=== PATIENT | male | born 1950 | race Caucasian/White ===

== ENCOUNTER 2018-10-03 09:33 | Outpatient (CLI) | payer MEDICARE ==
[2018-10-03 09:30] VITALS: BP 136/70
[~2018-10-03 09:33] MED LIST: PEPCID20 M1 PO
--- NOTE | 2018-10-05 13:18 | GI Progress Note ---
Assessment/Plan Problems: (1) Abdominal pain ICD Codes: R10.9 - Unspecified abdominal pain SNOMED: 34412364 (2) GERD (gastroesophageal reflux disease) ICD Codes: K21.9 - Gastro-esophageal reflux disease without esophagitis SNOMED: 051262921 Status: stable Status Narrative Seen with Dr. Fowler. Assessment/Plan Recommended to the patient had a repeat colonoscopy, will schedule once patient agrees. The patient could also have the upper endoscopy performed given his history of GERD and current abdominal pain Will order abdominal ultrasound if the pain persisted RTC x 1 month The patient was seen and examined at bedside and all new and available data was reviewed in the patients chart. I agree with the above findings, impression and plan. (Patient seen earlier today. Signature stamp does not reflect patient encounter time.). - Stefano Fowler MD Subjective Subjective Complains of mild abdominal pain GERD, takes Pepcid every night Last EGD and colonoscopy approximately 5 years ago in 2012 Objective Temperature 97.8 Blood pressure 136/70 Pulse of 66 100% room air General Appearance: WD/WN, no apparent distress, alert Cardiovascular: normal rate Respiratory/Chest: normal breath sounds, no respiratory distress Abdominal Exam: normal bowel sounds, non tender, soft Extremities: normal range of motion, non-tender Blanquita Khalil NP Oct 05, 2018 13:18
== END 2018-10-03 10:03 | disposition home or self-care (01) ==
LOC: PAN 09:33
DX: K21.9 Gastro-esophageal reflux disease without esophagitis (principal)
CPT/HCPCS: 99212

== ENCOUNTER 2019-01-23 09:05 | Outpatient (CLI) | payer MEDICARE ==
[2019-01-23 12:47] VITALS: BP 125/70
[2019-01-23] MEDS ORDERED: FLOMAX0.4 MG ORAL (12:47)
[2019-01-23] MEDS ORDERED: BYSTOLIC2.5 MG ORAL (12:47)
--- NOTE | 2019-01-23 19:30 | Consultation ---
DATE OF CONSULTATION: 01/23/2019 CONSULTING PHYSICIAN: Stefano Fowler M.D. CHIEF COMPLAINT: Abdominal pain. HISTORY OF PRESENT ILLNESS: This is a very pleasant 68-year-old male with multiple medical problems, which I will dictate in a second, complaint of right upper quadrant abdominal pain, waking him up in the middle of the night, usually around 2:30 in the morning associated with nausea and vomiting. No weight loss. No alarming signs or symptoms. Last endoscopy and colonoscopy in 2012, as he had a hiatal hernia, H. pylori-negative gastritis, and diverticulosis. PAST MEDICAL HISTORY: 1. History of hypercholesterolemia. 2. BPH. 3. Hypertension. 4. Hiatal hernia. 5. H. pylori-negative gastritis. 6. Diverticulosis. 7. GERD. PAST SURGICAL HISTORY: None. ALLERGIES: No known drug allergies. MEDICATIONS: Please see medication reconciliation list. SOCIAL HISTORY: The patient denies any tobacco, alcohol, or drug abuse. FAMILY HISTORY: Noncontributory. Father had a pancreatic cancer at old age at 90s. REVIEW OF SYSTEMS: A 10-point review of systems was performed and pertinent positives in HPI. PHYSICAL EXAMINATION: VITAL SIGNS: Temperature is 98.1, pulse is 71, respirations 20, and blood pressure is 124/70. HEENT: Normocephalic and atraumatic. Sclerae anicteric. NECK: Supple. No evidence of lymphadenopathy. CARDIOVASCULAR: Regular rate and rhythm. Plus S1 and S2. No obvious murmur. LUNGS: Clear to auscultation bilaterally. ABDOMEN: Positive bowel sounds. Soft and nontender. No rebound. No guarding. No peritoneal sign. EXTREMITIES: No cyanosis, no clubbing, no edema ASSESSMENT AND PLAN: This is a 68-year-old male with right upper quadrant pain, suspicious for gallstones. Also, the patient has a colonoscopy over 5 years ago and needed another colonoscopy screening. Plan to schedule for a screening colonoscopy and abdominal ultrasound on the same day. we are also going to check CBC, CMP, amylase, lipase. I want to thank, Dr. Stefano Bustos, for this kind referral. Stefano Fowler M.D. DR: CORONA JOB#: [id number] CC: Stefano Bustos M.D.
== END 2019-01-23 11:00 | disposition home or self-care (01) ==
LOC: PAN 09:05
DX: R10.11 Right upper quadrant pain (principal); R11.2 Nausea with vomiting, unspecified; K57.90 Diverticulosis of intestine, part unspecified, without perforation or abscess without bleeding; E78.00 Pure hypercholesterolemia, unspecified; I10 Essential (primary) hypertension; K21.9 Gastro-esophageal reflux disease without esophagitis
CPT/HCPCS: 99212

== ENCOUNTER 2019-02-02 11:50 | Outpatient (CLI) | payer MEDICARE ==
--- NOTE | 2019-01-31 14:51 | Diagnostic Imaging Report ---
Indication: Trauma pain Technique: A plantar grayscale and color Doppler imaging of the abdomen Comparison: None Findings: Technically difficult exam given patient body habitus and overlying bowel gas. Within these limitations: Increased obscured by overlying bowel gas. Imaged portions of the pancreas appear grossly unremarkable. Hepatic contour appears smooth. Right lobe liver measures 15.6 cm in length. Hepatic echogenicity is homogeneous. No focal hepatic mass lesion is appreciated sonographically. Main portal vein appears patent. No intrahepatic biliary ductal dilatation is identified. Common bile duct measures 4.3 cm diameter. Sludge with possible small stones noted in the gallbladder. No gallbladder wall thickening or pericholecystic fluid. Sonographic Guzman sign reported as negative. The right kidney measures 9.6 centers in length. The left kidney measures 11.6 cm in length. Both kidneys demonstrate normal echogenicity. No hydronephrosis or sonographically appreciable renal stone is identified. A simple appearing cyst is noted in the right kidney measuring up to 2.7 cm. Apparent hypoechoic area in the left kidney measuring 1.7 cm in diameter. This may represent an area of lobulation. Subtle mass however is not excluded. Spleen is normal in size. Imaged portions of the abdominal aorta normal in size. No ascites is demonstrated. IMPRESSION: Limited exam due to patient body habitus and overlying bowel gas. Within these limitations: Gallbladder sludge with some possible small stones. No sonographic evidence to suggest acute cholecystitis. Sonographic Guzman sign reported as negative. 1.7 cm apparent hypoechoic lesion in the left kidney which may represent area of prominent lobulation, artifact or subtle mass. Further evaluation with contrast-enhanced CT or MRI is recommended.
[~2019-02-02 11:50] MED LIST changes: +BYSTOLIC2.5 MG ORAL; +FLOMAX0.4 MG ORAL; +LIPITOR20 MG ORAL
== END 2019-02-02 13:50 | disposition home or self-care (01) ==
LOC: ULS 11:50
DX: R10.9 Unspecified abdominal pain (principal)
CPT/HCPCS: 76700

== ENCOUNTER 2019-02-13 09:11 | Outpatient (CLI) | payer MEDICARE ==
--- NOTE | 2019-02-13 09:54 | General Progress Note ---
Assessment/Plan Problem List: (1) Chronic constipation ICD Codes: K59.09 - Other constipation SNOMED: 298385116 (2) Colon polyps ICD Codes: K63.5 - Polyp of colon SNOMED: 05429889 (3) GERD (gastroesophageal reflux disease) ICD Codes: K21.9 - Gastro-esophageal reflux disease without esophagitis SNOMED: 852038456 Assessment/Plan: given 1.5 cm polyp, recommend repeat colonoscopy in 3 [address] of abd to fu on kidney lesion patient was offered cholecystectomy but wants to try ursodiol first RTC 3 months Subjective ROS Limited/Unobtainable: Yes Allergies: Coded Allergies: No Known Allergies (Unverified , 01/31/19) Objective General Appearance: alert EENT: normal ENT inspection Neck: supple Cardiovascular: normal rate Respiratory/Chest: lungs clear Abdomen: normal bowel sounds, non tender, soft Extremities: non-tender Stefano Fowler MD February 13, 2019 09:54
== END 2019-02-13 14:41 | disposition home or self-care (01) ==
LOC: PAN 09:11
DX: K59.09 Other constipation (principal); K63.5 Polyp of colon; K21.9 Gastro-esophageal reflux disease without esophagitis

== ENCOUNTER 2019-02-15 09:30 | Outpatient (CLI) | payer MEDICARE, BC ==
[2019-02-15 10:16] LABS: ALANINE AMINOTRANSFERASE 38 U/L (12-78); ALBUMIN 3.9 G/DL (3.4-5.0); ALKALINE PHOSPHATASE 87 U/L (46-116); AMYLASE 43 U/L (25-115); ANION GAP 6 mmol/L (5-15); ASPARTATE AMINO TRANSFERASE 24 U/L (15-37); BILIRUBIN,TOTAL 1.7 MG/DL (0.2-1.0); BLOOD UREA NITROGEN 18 mg/dL (7-18); CALCIUM 9.5 MG/DL (8.5-10.1); CARBON DIOXIDE 29 MMOL/L (21-32); CHLORIDE 105 MMOL/L (98-107); CREATININE 1.3 MG/DL (0.55-1.30); POTASSIUM 4.3 MMOL/L (3.5-5.1); SODIUM 140 MMOL/L (136-145)
[2019-02-15 10:18] LABS: BILIRUBIN,DIRECT 0.3 MG/DL (0.0-0.3)
--- NOTE | 2019-02-15 12:58 | Diagnostic Imaging Report ---
Indication: Abnormal ultrasound showing lobulation versus mass left kidney Technique: Continuous helical transaxial imaging of the abdomen and pelvis was obtained from the lung bases to the pubic symphysis during intravenous contrast administration. Coronal 2-D reformats were also obtained. Study obtained in a Siemens sensation [address] Automatic Exposure Control was utilized. Total Dose length Product (DLP): 851.[address] Dose Index Volume (CTDIvol): 16.58 mGy Comparison: None Findings: There is no mass in the left kidney. There is a simple cyst measuring 8 mm in the upper pole. There is also a cyst in the right kidney which was demonstrated on ultrasound as well and on this exam measures about 3 x 2 cm. Other smaller cysts noted in the right kidney measuring 8 mm. No stones or hydronephrosis identified. Aorta is calcified. Gallbladder is partially distended. The liver and spleen are unremarkable. There is a hiatal hernia present. Pancreas is unremarkable. Bowel gas pattern appears nonobstructive. Appendix is normal. Diverticula noted in the sigmoid colon. The prostate is prominent in size measures about 5.3 x 6.0 x 5.7 cm. There is mild thickening of the wall the urinary bladder. There is no free fluid. IMPRESSION: No renal mass identified within the left kidney. Bilateral renal cysts noted.. Multiple other incidental findings as above The CT scanner at [facility] is accredited by the [employer] and the scans are performed using dose optimization techniques as appropriate to a performed exam including Automatic Exposure control.
== END 2019-02-15 11:13 | disposition home or self-care (01) ==
LOC: EDSTATUS 09:30 → CAT 09:30
DX: N20.0 Calculus of kidney (principal); K44.9 Diaphragmatic hernia without obstruction or gangrene; K57.90 Diverticulosis of intestine, part unspecified, without perforation or abscess without bleeding
CPT/HCPCS: 36415; 74177; 80053; 82150; 82248; 83690; Q9967

== ENCOUNTER 2019-03-06 09:14 | Outpatient (CLI) | payer MEDICARE ==
--- NOTE | 2019-03-06 09:55 | General Progress Note ---
Assessment/Plan Problem List: (1) Gallstones ICD Codes: K80.20 - Calculus of gallbladder without cholecystitis without obstruction SNOMED: 239379397 (2) Renal cyst ICD Codes: N28.1 - Cyst of kidney, acquired SNOMED: 751052373 (3) Colon polyps ICD Codes: K63.5 - Polyp of colon SNOMED: 19603300 (4) Chronic constipation ICD Codes: K59.09 - Other constipation SNOMED: 961557788 (5) GERD (gastroesophageal reflux disease) ICD Codes: K21.9 - Gastro-esophageal reflux disease without esophagitis SNOMED: 036522811 (6) Abdominal pain ICD Codes: R10.9 - Unspecified abdominal pain SNOMED: 66151472 Assessment/Plan: on abx refered to surg michael Escobar Subjective ROS Limited/Unobtainable: Yes Allergies: Coded Allergies: No Known Allergies (Unverified , 01/31/19) Objective General Appearance: alert EENT: normal ENT inspection Neck: supple Cardiovascular: normal rate Respiratory/Chest: lungs clear Abdomen: soft, tender Extremities: non-tender Stefano Fowler MD Mar 06, 2019 09:55
[2019-03-06 13:47] VITALS: BP 141/79
== END 2019-03-06 11:14 | disposition home or self-care (01) ==
LOC: PAN 09:14
DX: K80.20 Calculus of gallbladder without cholecystitis without obstruction (principal); N28.1 Cyst of kidney, acquired; K63.5 Polyp of colon; K59.09 Other constipation; K21.9 Gastro-esophageal reflux disease without esophagitis; R10.9 Unspecified abdominal pain
CPT/HCPCS: 99212